=== PATIENT | female | born 1970 | race Two or more races ===

== ENCOUNTER → 2024-12-24 | Outpatient (CLI) | payer MEDICAID, SELFPAY ==
--- NOTE | 2024-12-24 | XR_ITS ---
Examination: Foot bilateral, 6 views Technique: AP, oblique, lateral views each foot total 6 views Date and time of exam: December 24, 2024, 1552 hrs. Indications: Bilateral foot pain beginning 3 weeks ago. Findings: Moderate osteopenia. 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 No fractures. No erosive arthritis. No opaque foreign bodies. 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
== END | disposition home or self-care (01) ==
LOC: CDIM 15:32
PROVIDERS: PCP Specialist; Referring Provider Internal Medicine; Visit Provider Internal Medicine
DX: M19.072 Primary osteoarthritis, left ankle and foot (principal); M19.071 Primary osteoarthritis, right ankle and foot
CPT/HCPCS: 73630

== ENCOUNTER → 2025-03-01 | Outpatient (CLI) | payer MEDICAID, SELFPAY ==
--- NOTE | 2025-03-01 12:30 | XR_ITS ---
Examination: Pelvic ultrasound, transabdominal, complete Technique: Transabdominal ultrasound of the pelvis performed using grayscale imaging Date and time of exam: March 01, 2025, 12:18 p.m. INDICATIONS: Pelvic pain beginning 3 years ago. FINDINGS: Absent uterus Right ovary 2.6 cm arterial flow Left ovary obscured by bowel gas Right ovarian simple cyst 2.6 x 1.6 x 2.1 cm IMPRESSION: Limited study Right ovarian simple cyst 26 x 16 x 21 mm
--- NOTE | 2025-03-01 12:30 | XR_ITS ---
Examination: Transvaginal ultrasound of the pelvis, complete Technique: Transvaginal sonographic images pelvis performed using hernandes scale imaging Exam date and time: March 01, 2025, 12:25 p.m. INDICATIONS: Hysterectomy 2008, pelvic pain 3 years. FINDINGS: Absent uterus Right ovary 2.1 cm arterial flow, 18 x 17 x 19 mm cyst Left ovary 1.7 cm arterial flow IMPRESSION: Right ovarian simple cyst 18 x 17 x 19 mm
== END | disposition home or self-care (01) ==
LOC: CDIM 11:50
PROVIDERS: Referring Provider Nurse Practitioner Family; Visit Provider Nurse Practitioner Family
DX: N83.291 Other ovarian cyst, right side (principal)
CPT/HCPCS: 76830; 76856

== ENCOUNTER → 2025-03-03 | Outpatient (CLI) | payer MEDICAID, SELFPAY ==
--- NOTE | 2025-03-03 13:40 | XR_ITS ---
Examination: Bone densitometry Date and time of exam: March 03, 2025, 1344 hours INDICATIONS: Hysterectomy age 38 vitamin D and calcium treatment 3 months levothyroxine 6 months Technique: Lumbar spine and hip total bone mineralization values of an calculated. Peak reference and age match control results have been displayed. Findings: Lumbar spine total bone mineralization is 0.833 gm/cm2. This is 1.9 standard deviations below peak reference. This is 1.0 standard deviations below age-matched controls. Hip total bone mineralization is 0.894 gm/cm2 This is 0.5 standard deviations below peak reference. This is 0.1 standard deviations above age-matched controls Impression: There is osteopenia based on lumbar spine measurements. There is osteopenia based on hip measurements
== END | disposition home or self-care (01) ==
LOC: CDIM 13:17
PROVIDERS: Referring Provider Specialist; Visit Provider Specialist
DX: M85.89 Other specified disorders of bone density and structure, multiple sites (principal)
CPT/HCPCS: 77080

== ENCOUNTER 2025-04-07 22:38 | Emergency (ER) | payer MEDICAID, SELFPAY ==
[2025-04-07 22:39] VITALS: BMI 24.6
[2025-04-07 22:49] VITALS: BP 143/85; PULSE 58; RESP 18; TEMP 36.6; O2SAT 97
--- NOTE | 2025-04-07 23:02 | XR_ITS ---
EXAMINATION: AP chest single view TECHNIQUE: AP sitting portable chest single view Date and time: April 07 2025, 1126 hours INDICATIONS: Shortness of breath weakness beginning today. FINDINGS: Normal heart size Lungs are clear. Moderate osteopenia IMPRESSION: No active disease
[2025-04-07 23:22] LABS: Collection Type, Urine Clean Catch
[2025-04-07 23:24] LABS: Basophils # (Auto) 0.0 Thou/mm3 (0.0-0.2); Basophils % (Auto) 1 % (0-2.5); Eosinophils # (Auto) 0.2 Thou/mm3 (0.0-0.5); Eosinophils % (Auto) 6 % (0-10); Hematocrit 37.7 % (36.0-46.0); Hemoglobin 12.9 g/dL (12.0-16.0); Immature Granulocytes Auto 0.02 Thou/mm3 (0.00-0.00); Lymphocytes # (Auto) 1.4 Thou/mm3 (1.0-4.8); Lymphocytes % (Auto) 38 % (10-50); Mean Corpuscular HGB Conc 34.2 g/dl (31.0-37.0); Mean Corpuscular Hemoglobin 28.9 pg (25.0-35.0); Mean Corpuscular Volume 85 fL (80-100); Monocytes # (Auto) 0.4 Thou/mm3 (0.0-0.8); Monocytes % (Auto) 12 % (0-12); Neutrophils # (Auto) 1.6 Thou/mm3 (1.8-7.7); Neutrophils % (Auto) 44 % (37-80); Nucleated Red Blood Cell # 0.00 Thou/mm3 (0.00-0.00); Nucleated Red Blood Cell % 0 /100 WBC (0); Platelet Count 247 Thou/mm3 (140-440); RDW Standard Deviation 37.5 fL (36.4-46.3); Red Blood Count 4.46 Miln/mm3 (4.00-5.20); White Blood Count 3.6 Thou/mm3 (3.6-11.0)
[2025-04-07 23:40] LABS: Anion Gap 9 (7-16); BUN/Creatinine Ratio 17 Ratio (12-20); Blood Urea Nitrogen 10 mg/dL (9-23); Calcium 9.3 mg/dL (8.3-10.6); Carbon Dioxide 24.8 mMol/L (20.0-31.0); Chloride 108 mMol/L (98-107); Creatinine (Component) 0.6 mg/dL (0.6-1.3); Estimated Creatinine Clearance 74.7 mL/min (>60); Glucose 115 mg/dL (74-106); Osmolality,Calculated 283 (275-295); Potassium 4.0 mMol/L (3.4-5.1); Sodium 142 mMol/L (136-145); eGFR > 60 See Note
[2025-04-07 23:41] LABS: Amorphous Crystals,Urine Present (Absent); Bacteria,Urine Rare; Bilirubin,Urine Negative (Negative); Blood,Urine Negative (Negative); Clarity,Urine Clear (Clear/Hazy); Color,Urine Colorless (Lt Yel-Yel); Glucose, Urine Negative (Negative); Ketones,Urine Negative (Negative); Leukocyte Esterase,Urine Negative (Negative); Nitrite,Urine Negative (Negative); PH,Urine 7.0 (5.0-7.0); Protein,Urine Negative (Neg - Trace); RBC,Urine 2 /hpf (0-3); Specific Gravity,Urine 1.005 (1.001-1.035); Squamous Epithelial Cell,Urine < 1 /hpf (0-5); Urobilinogen,Urine Negative mg/dL (0.0-1.0); WBC,Urine < 1 /hpf (0-5)
--- NOTE | 2025-04-07 23:52 | PD.EDADULT ---
ED General RME/HPI General Chief complaint: General Adult/Misc Complain Stated complaint: NOT FEELING GOOD, DIZZY Time Seen by Provider: 04/07/25 22:58 Source: patient and family Arrival date/time: 04/07/25 22:38 Mode of arrival: wheelchair Limitations: language barrier RME / HPI RME / HPI narrative: This patient is a 54-year-old [place]-speaking only female who arrives to the ED today with her son due to complaints of generalized weakness and ill feeling for the past 2 days. Patient denies any recent travel or ill contacts. Patient states she has felt generally weak with a mild intermittent cough. Patient denies any shortness of breath. Patient denies any fever nausea or vomiting. Vital signs were stable arrival. Related Data Allergies Allergy/AdvReac Type Severity Reaction Status Date / Time No Known Allergies Allergy Mild Uncoded 01/10/09 09:36 Review of Systems Review of Systems Systems Reviewed: All systems reviewed, normal except as documented Past Medical History Social History SMOKING STATUS: Never smoker ED Exam Narrative Physical exam: Patient appeared generally weak but nontoxic. General Limitations: Present language barrier General appearance: Present alert and in no apparent distress Head Head exam: Present atraumatic Eye Eye exam: Present normal appearance, PERRL and EOMI ENT ENT exam: Present normal exam, normal oropharynx and mucous membranes moist Neck Neck exam: Present normal inspection, full ROM and trachea midline Chest Chest inspection: Present normal inspection and symmetric chest wall rise Respiratory Respiratory exam: Present normal lung sounds bilaterally Cardiovascular Cardiovascular exam: Present regular rate, normal rhythm and normal heart sounds Abdominal Exam Abdominal exam: Present soft and normal bowel sounds Extremities Exam Extremities exam: Present normal inspection and full ROM Back Exam Back exam: Present normal inspection and full ROM Neurological Exam Neurological exam: Present alert, oriented X3 and CN II-XII intact Psychiatric Psychiatric exam: Present normal affect and normal mood Skin Skin exam: Present warm, dry, intact and normal color Course Quality Measures none Orders Category Date Time Status XR chest 1V portable Stat Exams 04/07/25 23:37 Taken BMP [Basic Metabolic Panel] Stat Lab 04/07/25 23:14 Completed CBC Stat Lab 04/07/25 23:14 Completed UA [Urinalysis] Stat Lab 04/07/25 23:11 Completed As noted above Vital Signs Vital signs: Vital Signs Temperature 97.8 F 04/07/25 22:49 Pulse Rate 58 L 04/07/25 22:49 Respiratory Rate 18 04/07/25 22:49 Blood Pressure 143/85 H 04/07/25 22:49 Pulse Oximetry (%) 97 04/07/25 22:49 Oxygen Delivery Method Room Air 04/07/25 22:49 As noted above Discharge Plan Plan Patient Disposition: HOME (Self Care) Prescriptions/Referrals Referrals: No Primary/Family,Physician [Primary Care Provider] - In 1 week Problem List Clinical Impression: Viral illness Patient/Caregiver Discharge Instructions Education Materials: ED Viral Syndrome (Adult) Additional Instructions: Advised Tylenol and/or Motrin as needed for fever relief for pain control. Advise good hydration and healthy nutrition moving forward. Print Language: [place] Stand Alone Forms: [employer] Award Info., Patient Portal Info Letter MDM Narrative Sign Out note: All studies performed in the ED were evaluated by me personally. Serum studies unremarkable for any systemic concerns and EKG was unremarkable for any consolidation or intrapulmonary issues. Unknown as to the cause of the patient's generalized weakness. Advise good hydration and healthy nutrition. If symptoms continue, patient will need to follow-up with primary care provider. Clinical Information Provided by: patient and family Medical Records reviewed [facility] Meds/Rx considered, not ordered None describe: None Labs/Rad/Tests considered, not ordered None Describe: None Chronic Illness/Social Conditions which may negatively complicate care or outcome(s)-explain: None or not applicable EKG EKG not done Labs Labs: interpreted by mi Lab(s) Interpretation(s): Unremarkable serum studies and urinalysis. Imaging Imaging interpretation: interpreted by mi Imaging Interpretation(s): Unremarkable chest x-ray. No consolidation or intrapulmonary concerns noted. No cardiomegaly. Medication Administration(s) none Diagnosis Differential Diagnosis ED Complaint MDM: Viral illness, sepsis, electrolyte abnormality, pneumonia, viral upper resp Diagnoses ruled out and/or further discussions: Viral illness
[2025-04-08 00:46] VITALS: BP 143/86; PULSE 56; RESP 16; TEMP 36.7; O2SAT 100
== END 2025-04-08 00:50 | disposition home or self-care (01) ==
PROVIDERS: Physician Assistant; Emergency Provider Emergency Medicine
DX: B34.9 Viral infection, unspecified (principal)
CPT/HCPCS: 36415; 71045; 80048; 81001; 85025; 99283